=== PATIENT | female | born 1980 | race Caucasian/White ===

== ENCOUNTER 2017-11-11 09:40 | Emergency (ER) | payer OTHER ==
[2017-11-11 09:47] VITALS: BP 116/72; PULSE 85; TEMP 97.8; BMI 24.0
--- NOTE | 2017-11-11 09:47 | PDOC ---
History of Present Illness - General Chief Complaint: Nausea/Vomiting Stated Complaint: "I FEEL DEHYDRATED", VOMITING, NAUSEA Time Seen by Provider: 11/11/17 09:47 History Source: Patient Exam Limitations: No Limitations - History of Present Illness Initial Comments: 11/11/17 09:58 This is a 37-year-old female who comes in complaining of nausea vomiting 3 days intermittently. Patient said that vomiting seems to be worse in the afternoon and evening. Patient last vomited approximately 6 hours ago. Patient says she is feeling weak and dehydrated. Patient has had some chills but did not take her temperature so does not know she had a fever. Patient denies any abdominal pain associated with the vomiting. Patient denies any diarrhea. Patient is otherwise healthy. PAST MEDICAL HISTORY: no significant history PAST SURGICAL HISTORY: no significant history FAMILY HISTORY: no pertinant history SOCIAL HISTORY: Pt lives with family and is employed. MEDICATIONS: reviewed ALLERGIES: As per nursing notes Review of Systems General: No fevers or chills, no weakness, no weight loss HEENT: No change in vision. No sore throat,. No ear pain CardioVascular: No chest pain or shortness of breath Respiratory:No cough, or wheezing. Gastrointestinal: no nausea, vomitting, diarrhea or constipation, No rectal bleeding Genitourinary: No dysuria, hematuria, or frequency Musculoskeletal: No joint or muscle pain or swelling Neurologic: No headache, vertigo, dizziness or loss of consciousness Psychiatric: nor depression Skin: No rashes or easy bruising Endocrine: no increased thirst or abnormal weight change Allergic: no skin or latex allergy All other systems reviewed and normal Exam: General: Well-nourished well-developed individual, no acute distress HEENT: Throat: Normal, tonsils normal, no erythema or exudate, mucous membranes are dry Neck: Supple, no meningeal signs, no lymphadenopathy Eyes::Pupils equal reactive and round, extraocular motion intact Chest: Nontender to palpation Cardiac: S1-S2 normal, regular rate and rhythm, no murmurs rubs or gallops Respiratory: Lungs clear to auscultation bilateral Abdomen: Soft, nondistended, increased bowel sounds, nontender to palpation diffusely Extremities: Warm, dry, no cyanosis, clubbing, or edema Skin: No rashes Neuro: Alert and oriented x3, CN II - XII intact, nonfocal exam with normal strength, normal sensation, normal reflexes, normal gait, Psych: Normal mood and affect Medical decision-makin-year-old female with nausea vomiting 3 days. Patient does appear to be dry clinically. Well give the patient 2 L of fluid and send labs to check for infection, and electrolytes, and chemistries. Reassess after fluids and follow up on lab results. 11/11/17 11:12 Reevaluation patient feels better however still has not felt the need to urinate. Patient's urine was very concentrated so will give another liter fluid and reassess. 11/11/17 12:06 Reevaluation: Patient has received 2 L of fluid, patient is tolerating by mouth's, patient was able to urinate here in the emergency room and feels much better. Assessment and plan: This is a 37-year-old female who comes in complaining of nausea and vomiting but no diarrhea or fevers. Patient had a workup including labs that were normal with a normal white count and no left shift and in no abnormalities of her electrolytes. Patient feels much better after 2 L of fluids. Patient has a primary care doctor she can follow-up with. Patient discharged home prescription for Zofran sent to her pharmacy. Past History - Past Medical History Allergies/Adverse Reactions: Allergies Allergy/AdvReac Type Severity Reaction Status Date / Time No Known Allergies Allergy Verified 11/11/17 09:42 Home Medications: Ambulatory Orders Ondansetron [Zofran Odt -] 4 mg SL ASDIR 11/11/17 Ondansetron [Zofran Odt -] 4 mg SL QID PRN #12 od.tablet 11/11/17 COPD: No - Suicide/Smoking/Psychosocial Hx Smoking History: Never smoked Have you smoked in the past 12 months: No Hx Alcohol Use: (weekly) *Physical Exam - Vital Signs Last Vital Signs Temp Pulse Resp BP Pulse Ox 97.8 F 85 18 116/72 100 11/11/17 09:40 11/11/17 09:40 11/11/17 09:40 11/11/17 09:40 11/11/17 09:40 ED Treatment Course - LABORATORY CBC & Chemistry Diagram: 11/11/17 10:10 11/11/17 10:10 *DC/Admit/Observation/Transfer Diagnosis at time of Disposition: Dehydration Nausea & vomiting Qualifiers: Vomiting type: unspecified Vomiting Intractability: non-intractable Qualified Code(s): R11.2 - Nausea with vomiting, unspecified - Discharge Dispostion Disposition: HOME Condition at time of disposition: Stable Admit: No - Referrals Referrals: Neftali Teixeira MD [Primary Care Provider] - - Patient Instructions Printed Discharge Instructions: DI for Nausea -- Adult, DI for Vomiting -- Adult Additional Instructions: You can take your Zofran that you have an as often as every 6 hours if needed for nausea or vomiting. Keep your appointment with your OB. Return to the emergency department immediately with ANY new, persistent or worsening symptoms. Continue any medications as previously prescribed by your physician. You should follow up with your primary doctor as soon as possible regarding today's emergency department visit. . Please make sure your doctor reviews the results of your emergency evaluation. Thank you for coming to the Emergency Department today for your care. It was a pleasure to see you today. Please note that your evaluation is INCOMPLETE until you follow-up with your doctor. - Post Discharge Activity
[2017-11-11] MEDS ORDERED: SODIUM CHLORIDE 1,000 ML IV ONE ×2 (09:56→11:11)
[2017-11-11] MEDS ORDERED: ONDANSETRON 4 MG/2 ML VIAL IVPUSH ONE (09:57)
[2017-11-11] MEDS ORDERED: ONDANSETRON 4 MG/2 ML VIAL ONE (10:10)
[2017-11-11 10:13] LABS: BASO % 2.6 % (0-2.0); EOS % 0.8 % (0-4.5); HEMOGLOBIN 13.1 GM/dl (10.7-15.3); LYMPH % 33.5 % (8-40); MCH 30.5 pg (25.7-33.7); MCHC 33.6 g/dl (32.0-36.0); MEAN CELL VOLUME 90.6 fl (80-96); MEAN PLT VOLUME 9.4 fl (7.5-11.1); MONO % 5.9 % (3.8-10.2); NEUT % 57.2 % (42.8-82.8); PLATELET COUNT 326 K/MM3 (134-434)
[2017-11-11 10:41] LABS: PH,URINE 6.5 (4.5-8); URINE APPEARANCE Clear; URINE BILIRUBIN 1+ (NEGATIVE); URINE GLUCOSE (UA) Negative (NEGATIVE); URINE KETONE 3+ (NEGATIVE); URINE NITRITE Negative (NEGATIVE)
[2017-11-11 10:43] LABS: HCG,QUALITATIVE URINE NEGATIVE; URINE BLOOD Trace-lysed (NEGATIVE); URINE COLOR YELLOW; URINE PROTEIN 1+ (NEGATIVE)
[2017-11-11 10:54] LABS: ALBUMIN 4.2 g/dl (3.5-5.0); ALK PHOS 38 U/L (32-92); ANION GAP 4 (8-16); BILIRUBIN,TOTAL 1.1 mg/dl (0.2-1.0); BLOOD UREA NITROGEN 14 mg/dl (7-18); CALCIUM 8.8 mg/dl (8.4-10.2); CHLORIDE 110 mmol/L (98-107); CO2 23 mmol/L (22-28); CREATININE 0.5 mg/dl (0.6-1.3); GLUCOSE,RANDOM 97 mg/dl (74-106); POTASSIUM 3.7 mmol/L (3.5-5.1); SGOT/AST 19 U/L (10-42); SGPT/ALT 17 U/L (10-40); SODIUM 137 mmol/L (136-145); TOT PROT 6.6 g/dl (6.4-8.3)
[2017-11-11 11:02] LABS: LIPASE < 20 U/L (22-51)
[2017-11-11 11:13] LABS: URINE RBC 0-2 /hpf (0-3)
[2017-11-11 11:14] LABS: EPI CELLS FEW /HPF; URINE BACTERIA RARE /hpf (NEGATIVE); URINE MUCUS FEW; URINE WBC 0-3 (0-5)
== END 2017-11-11 12:15 | disposition home or self-care (01) ==
LOC: FER 09:40
PROC: 3E033GC Introduction of Other Therapeutic Substance into Peripheral Vein, Percutaneous Approach (ICD-10-PCS; principal; 2017-11-11)
PROC: 3E0337Z Introduction of Electrolytic and Water Balance Substance into Peripheral Vein, Percutaneous Approach (ICD-10-PCS; 2017-11-11)
DX: E86.0 Dehydration (principal); R11.2 Nausea with vomiting, unspecified
CPT/HCPCS: 36415; 80053; 81003; 81015; 83690; 83735; 84703; 85025; 99284-25

== ENCOUNTER 2020-11-05 12:12 | Emergency (ER) | payer OTHER | END 2020-11-05 14:09 | disposition home or self-care (01) | LOC: JVIRT 12:12 | DX: Z03.818 Encounter for observation for suspected exposure to other biological agents ruled out (principal) | CPT/HCPCS: C9803; G2012-GT; Q3014-GT; U0003 ==

== ENCOUNTER 2023-12-22 18:27 | Emergency (ER) | payer OTHER ==
[2023-12-22 18:45] VITALS: BP 112/70; PULSE 80; RESP 16; TEMP 98.4; BMI 22.6
[2023-12-22] MEDS: SODIUM CHLORIDE 1,000 ML IV ONE ×2 (20:02→20:07)
[2023-12-22] MEDS ORDERED: ONDANSETRON 4 MG/2 ML VIAL ONE (20:02)
[2023-12-22] MEDS: ONDANSETRON 4 MG/2 ML VIAL IVPB ONE (20:07)
[2023-12-22] MEDS ORDERED: METOCLOPRAMIDE HCL INJECTION 10 MG/2 ML VIAL ONE (21:20)
[2023-12-22] MEDS: METOCLOPRAMIDE HCL INJECTION 10 MG/2 ML VIAL IVPUSH ONE (21:22)
[2023-12-22 21:34] LABS: HEMATOCRIT 37.6 % (32.4-45.2); HEMOGLOBIN 12.3 G/dL (10.7-15.3); MCH 30.8 pg (25.7-33.7); MCHC 32.8 g/dl (32.0-36.0); MEAN PLT VOLUME 8.9 fl (7.5-11.1); PLATELET COUNT 339.4 10^3/uL (134-434); WHITE BLOOD COUNT 10.5 10^3/uL (4.0-10.8)
[2023-12-22 21:51] LABS: ALBUMIN 3.7 g/dl (3.4-5.0); BILIRUBIN,TOTAL 0.8 mg/dl (0.2-1); CALCIUM 7.8 mg/dl (8.5-10.1); CREATININE 0.5 mg/dl (0.6-1.3); MAGNESIUM 1.7 mg/dL (1.8-2.4); PHOSPHOROUS 2.1 (2.5-4.9); TOT PROT 5.4 g/dl (6.4-8.2)
[2023-12-22] MEDS ORDERED: DEXTROSE 50%-WATER 25 GM/50 ML DISP.SYRIN ONE (22:01)
[2023-12-22] MEDS: DEXTROSE 50%-WATER - 25 GM/50 ML VIAL IVPUSH ONE (22:03)
[2023-12-22] MEDS ORDERED: METOCLOPRAMIDE HCL 10 MG TABLET (FP) PO ONE (22:43)
[2023-12-22] MEDS: METOCLOPRAMIDE HCL 10 MG TABLET (FP) PO ONE (22:46)
== END 2023-12-22 22:53 | disposition home or self-care (01) ==
LOC: FER 18:27
PROC: 3E033NZ Introduction of Analgesics, Hypnotics, Sedatives into Peripheral Vein, Percutaneous Approach (ICD-10-PCS; principal; 2023-12-22)
PROC: 3E033GC Introduction of Other Therapeutic Substance into Peripheral Vein, Percutaneous Approach (ICD-10-PCS; 2023-12-22)
PROC: 3E033GC Introduction of Other Therapeutic Substance into Peripheral Vein, Percutaneous Approach (ICD-10-PCS; 2023-12-22)
PROC: 3E0337Z Introduction of Electrolytic and Water Balance Substance into Peripheral Vein, Percutaneous Approach (ICD-10-PCS; 2023-12-22)
DX: R11.2 Nausea with vomiting, unspecified (principal); E86.0 Dehydration; F12.90 Cannabis use, unspecified, uncomplicated
CPT/HCPCS: 36415; 80053; 83690; 83735; 84100; 85027; 99284-25